=== PATIENT | female | born 1985 | race Caucasian/White ===

== ENCOUNTER 2017-05-27 16:54 | Emergency (ER) | payer MEDICAID ==
[~2017-05-27] VITALS: Ht 160 cm; Wt 58.9 kg
[~2017-05-27 16:54] MED LIST: IBUP-1542 PO; PREN-39 PO
[2017-05-27 17:03] VITALS: Ht 160 cm; Wt 58.9 kg
[2017-05-27] MEDS ORDERED: LIDOCAINE 2% (MDV) 20 ML INJ INJ ONE (18:00)
[2017-05-27] MEDS ORDERED: ACET500C5 PO (18:15)
[2017-05-27] MEDS ORDERED: CEPH-443 PO (18:15)
--- NOTE | 2017-05-27 18:22 | ERD ---
ER Documentation Chief Complaint Chief Complaint Pt with R foot ingrown toe nail X 1 week. HPI 31-year-old female patient with a past medical history of ingrown toenails presents to the ED complaining of a right great toe nail pain that occurred 1 week ago. She reports that she started to have purulent discharge in the inner part of her great toenail. Denies stubbing her toe or injuring her toes. Denies any trauma. Denies any fever, chills, nausea, vomiting, loss of sensation loss of range of motion. ROS All systems reviewed and are negative except as per history of present illness. Medications Home Meds Active Scripts Acetaminophen* (Tylophen*) 500 Mg Capsule, 1 CAP PO Q6H Y for PAIN AND OR ELEVATED TEMP, #20 CAP Prov:MARTHA JOSHUA PA-C 05/27/17 Cephalexin* (Keflex*) 500 Mg Capsule, 500 MG PO QID for 7 Days, CAP Prov:MARTHA JOSHUA PA-C 05/27/17 Ibuprofen* (Motrin*) 600 Mg Tab, 600 MG PO Q6, #14 TAB Prov:YVAN MCKEON MD 06/17/15 Reported Medications Vits W-Ca,Fe,Fa(<1MG) ( Vitamins) 1 Tab Tablet, 1 TAB PO DAILY 10/15/14 Allergies Allergies: Coded Allergies: No Known Allergies (Unverified Allergy, Unknown, 06/17/15) PMhx/Soc Medical and Surgical Hx: pt denies Medical Hx, pt denies Surgical Hx History of Surgery: No Anesthesia Reaction: No Hx Neurological Disorder: No Hx Respiratory Disorders: No Hx Cardiac Disorders: No Hx Psychiatric Problems: No Hx Miscellaneous Medical Probl: No Hx Alcohol Use: No Hx Substance Use: No Hx Tobacco Use: No Physical Exam Vitals Vital Signs Date Time Temp Pulse Resp B/P Pulse Ox O2 Delivery O2 Flow Rate FiO2 05/27/17 17:03 97.9 77 16 113/69 99 Physical Exam Const: [id number]-svf-xygsddits, well-nourished. In no acute distress. Head: Atraumatic, normocephalic Eyes: Normal Conjunctiva without injection ENT: Normal external ear, nose and mouth. Neck: Full range of motion. No meningismus. Resp: Clear to auscultation bilaterally. No wheezing, rhonchi, rales, or crackles. No accessory muscle use. No retractions. Cardio: Regular rate and rhythm, no murmurs Skin: No petechiae or rashes Back: No midline tenderness. No CVA tenderness. Ext: No cyanosis, or edema. Cap refill less than 2 seconds. Distal pulses intact bilaterally. Ingrown toenail noted of the right great toe. No surrounding erythema. Slight purulent discharge noted at the medial aspect of patient's right great toe. No deformities. Tenderness to palpation of the nail -bed. Full range of motion of the MTP, IP joints of the bilateral toes. Neur: Awake and alert. Normal gait and coordination. Muscle strength 5/5. Sensation intact bilaterally. Psych: Normal Mood and Affect Results 24 hrs Current Medications Medications (Trade) Dose Ordered Sig/Sue Route PRN Reason Start Time Stop Time Status Last Admin Dose Admin Lidocaine (Xylocaine 2% (Mdv) 20 ml) 20 ml ONCE ONCE INJ 05/27/17 18:00 05/27/17 18:01 DC Procedures/MDM 31-year-old female patient with no significant past medical history presents to the ED complaining of a right great toe nail pain. Patient is afebrile and nontoxic-appearing. Patient has normal vital signs. Patient gave consent to perform an incision of the medial and lateral aspect of patient's right great toenail. 3 cc of 2% lidocaine was used to perform a digital block. 1 mm of the base of the nail was removed medially and laterally with the nail still intact. No erythema or edema. Slight purulent discharge, therefore patient will be discharged with a prescription for Keflex. Patient is appropriate for outpatient management with a gem setter. Patient is neurovascularly intact. Patient's extremity symptoms have stabilized while they have been evaluated in the department and are appropriate for outpatient follow up. No evidence of fractures, dislocations, compartment syndrome, neurologic injury, vascular injury, open joint, open fracture, tendon laceration, septic arthritis, osteomyelitis, DVT, foreign body, or other emergent conditions. Discharge medications: Tylenol, Keflex Follow up with primary care physician in 1-2 days for a referral to see a gem setter. Instructed patient to return to the ED sooner for any worsening symptoms. Patient's questions were answered. Patient understood and agreed with discharge plan. Patient discharged stable. Departure Diagnosis: Primary Impression: Ingrown toenail Condition: Stable Patient Instructions: Understanding Ingrown Toenails, Ingrown Toenail, Excised , Ingrown Toenail, Infected (Abx Only) [facility] Usted se luis hecho un examen mdico de control que le indica que no est en ralph condicin que requiera tratamiento urgente en el Departamento de Emergencia. Un estudio ms profundo y el tratamiento de grimm condicin pueden esperar sin ningn riesgo hasta que usted sea atendida/o en el consultorio de grimm mdico o ralph cl roman. Es responsabilidad suya arreglar ralph jennifer para el seguimiento del rosa. MANEJO DE CONDICIONES NO URGENTES EN EL FUTURO 1) Si usted tiene un mdico de atencin primaria: Usted debera llamar a grimm mdico de atencin primaria antes de venir al departamento de emergencia. Despus de las horas de consultorio, grimm doctor o grimm asociado/a est disponible por telfono. El mdico o enfermero de luh en el servicio telefnico puede asesorarle por erasmo medio para atender el problema, o rosa contrario se puede programar ralph jennifer. 2) Si usted no tiene un mdico de atencin primaria: Llame al mdico o clnica de referencia que aparece abajo marty las horas de consultorio para hacer ralph jennifer para que le vean. CLINICAS: [facility] [phone] [facility] [phone] [facility] [phone] [facility]. [place] [id number] [phone] [place] [id number] [phone] [facility]. [phone] [place] [address]. [facility] () Makenzie se luis hecho un examen mdico de control que le indica que no est en ralph condicin que requiera tratamiento urgente en el Departamento de Emergencia. Un estudio ms profundo y el tratamiento de grimm condicin pueden esperar sin ningn riesgo hasta que usted sea atendida/o en el consultorio de grimm mdico o ralph cl roman. Es responsabilidad suya arreglar ralph jennifer para el seguimiento del rosa. MANEJO DE CONDICIONES NO URGENTES EN EL FUTURO 1) Si usted tiene un mdico de atencin primaria: Makenzie debera llamar a grimm mdico de atencin primaria antes de venir al departamento de emergencia. Despus de las horas de consultorio, grimm doctor o grimm asociado/a est disponible por telfono. El mdico o enfermero de luh en el servicio telefnico puede asesorarle por erasmo medio para atender el problema, o rosa contrario se puede programar ralph jennifer. 2) Si usted no tiene un mdico de atencin primaria: Llame al mdico o condado institucions de referencia que aparece abajo marty las horas de consultorio para hacer ralph jennifer para que le vean. SI USTED NO PUEDE PAGAR PARA KASIE UN MEDICO puede ir a: [facility] [phone] [place] [address] [facility] [address] [place] [address] [facility] [address] [place] [address] [facility] [address] [place] [address] Additional Instructions: Seguimiento con un podlogo maana para mayor evaluacin y tratamiento Regrese a estas instalaciones si no se mejora luis esperbamos o luis le dijimos. MARTHA JOSHUA PA-C May 27, 2017 18:22
[2017-05-27 18:56] VITALS: BP 115/68; PULSE 75; RESP 16; TEMP 97.9
== END 2017-05-27 18:56 | disposition home or self-care (01) ==
LOC: FTE 16:54
DX: L60.0 Ingrowing nail (principal)
CPT/HCPCS: 11765; Z7502; Z7610